=== PATIENT | female | born 1995 | race Caucasian/White ===

== ENCOUNTER 2019-06-02 08:39 | Emergency (ER) | payer OTHER ==
[~2019-06-02] VITALS: Wt 61.4 kg
[2019-06-02 08:43] VITALS: BP 165/95; PULSE 113; RESP 20; Wt 61.4 kg
[2019-06-02] MEDS ORDERED: NAPR-985 PO (09:20)
[2019-06-02] MEDS ORDERED: MED4DP PO (09:20)
--- NOTE | 2019-06-02 10:03 | ERD ---
ER Documentation Chief Complaint Chief Complaint r. wrist pain x3 wks, denies trauma HPI 24-year-old female presenting with right wrist pain x3 weeks. Patient denies any traumatic injuries. She is right-hand dominant. She states that she has some numbness to her fingers primarily her index and thumb. Denies any weakness. Has not taken medications for her symptoms. Denies medical problems. NKDA. Surgical history denies. Social history denies ROS All systems reviewed and are negative except as per history of present illness. Medications Home Meds Active Scripts Methylprednisolone* (Medrol* DOSE PACK) 4 Mg/Dose-Pack Tab.ds.pk, 4 MG PO . DIRECTED, #1 PACKET Prov:AFRICA DAVE PA-C 06/02/19 Naproxen* (Naprosyn*) 500 Mg Tablet, 500 MG PO BID PRN for PAIN AND/OR INFLAMMATION, #30 TAB Prov:AFRICA DAVE PA-C 06/02/19 Allergies Allergies: Coded Allergies: No Known Allergy (Unverified , 12/11/12) PMhx/Soc Medical and Surgical Hx: pt denies Medical Hx, pt denies Surgical Hx Hx Alcohol Use: No Hx Substance Use: No Hx Tobacco Use: No Smoking Status: Never smoker FmHx Family History: No diabetes, No coronary disease, No other Physical Exam Vitals Vital Signs Date Temp Pulse Resp B/P (MAP) Pulse Ox O2 O2 Flow FiO2 Time Delivery Rate 06/02/19 98.7 113 20 165/95 100 08:43 (118) Physical Exam GENERAL: The patient is well-appearing, well-nourished, in no acute distress CHEST: Clear to auscultation bilaterally. There are no rales, wheezes or rhonchi. HEART: Regular rate and rhythm. No murmurs, clicks, rubs or gallops. EXTREMITIES: No snuffbox tenderness. Strength 5 out of 5. NEUROLOGIC: Alert and oriented. Cranial nerves II through XII intact. Motor strength in all 4 extremities with 5 out of 5 strength. Sensation grossly int act. Normal speech and gait. SKIN: There is no apparent rash or petechiae. The skin is warm and dry. Procedures/MDM ER course: Wrist splint applied in ED. MDM: 24-year-old female presenting with wrist pain. I have low suspicion for acute fracture dislocation. I have low suspicion for tendon or ligament injury. I will suspicion for neuro deficit or vascular injury. Patient likely has nerve pain and swelling. Patient will be discharged with supportive medications. Patient is told if symptoms change or worsen to return immediately to the ER. All questions answered at discharge Departure Diagnosis: Primary Impression: Pain in wrist Condition: Stable Patient Instructions: Wrist Sprain Referrals: [facility] YOU HAVE RECEIVED A MEDICAL SCREENING EXAM AND THE RESULTS INDICATE THAT YOU DO NOT HAVE A CONDITION THAT REQUIRES URGENT TREATMENT IN THE EMERGENCY DEPARTMENT. FURTHER EVALUATION AND TREATMENT OF YOUR CONDITION CAN WAIT UNTIL YOU ARE SEEN IN YOUR DOCTORS OFFICE WITHIN THE NEXT 1-2 DAYS. IT IS YOUR RESPONSIBILITY TO MAKE AN APPOINTMENT FOR FOLOW-UP CARE. IF YOU HAVE A PRIMARY DOCTOR --you should call your primary doctor and schedule an appointment IF YOU DO NOT HAVE A PRIMARY DOCTOR YOU CAN CALL OUR PHYSICIAN REFERRAL HOTLINE AT IF YOU CAN NOT AFFORD TO SEE A PHYSICIAN YOU CAN CHOSE FROM THE FOLLOWING [facility] [address] [facility] [address] [facility] [address] [facility] [address] [facility] [address] [facility] [facility]. [address] Additional Instructions: FOLLOW UP WITH YOUR PRIMARY CARE PHYSICIAN TOMORROW.Return to this facility if you are not improving as expected. AFRICA DAVE PA-C Jun 02, 2019 10:03
== END 2019-06-02 09:45 | disposition home or self-care (01) ==
LOC: FTE 08:39
DX: M25.531 Pain in right wrist (principal)
CPT/HCPCS: 29125; Z7502